=== PATIENT | male | born 1955 | race Caucasian/White ===

== ENCOUNTER 2023-03-15 05:55 | Inpatient (IN) | payer BC, MEDICARE, OTHER ==
[2023-03-15] MEDS ORDERED: fentaNYL 50 mcg/mL 1 mL Vial ONE ×4 (06:17→08:36)
[2023-03-15 06:27] LABS: #Eosinphils 0.3 thou/uL (0.0-0.7); #Monocytes 0.6 thou/uL (0.11-0.59); #Neutrophils 3.9 thou/uL (1.40-6.50); %Basophils 0.4 % (0.0-1.0); %Eosinophils 4.1 % (0.0-10.0); %Lymphocytes 31.7 % (21.0-51.0); %Monocytes 8.7 % (0.0-10.0); %Neutrophils 54.8 % (42.0-75.0); Hematocrit 38.7 % (42.0-52.0); Hemoglobin 13.1 g/dL (14.0-18.0); Mean Corpuscular HGB CONC 33.9 g/dL (32.0-36.0); Mean Corpuscular Hemoglobin 30.8 pg (27.0-31.0); Mean Corpuscular Volume 91.1 fl (78.0-98.0); Mean Platelet Volume 8.9 fL (7.4-10.4); Platelet Count 171 10x3/uL (130-400); RBC Distribution Width 13.5 % (11.5-14.5); Red Blood Cell (RBC) Count 4.25 mill/uL (4.70-6.10); White Blood Cell (WBC) Count 7.1 10x3/uL (4.8-10.8)
[2023-03-15 06:41] LABS: INR-International Normal Ratio 1.1; Prothrombin Time 14.6 sec (12.0-14.7)
[2023-03-15 06:43] LABS: PTT 97.6 sec (22.9-36.1)
[2023-03-15 06:51] LABS: ALT (SGPT) 11 U/L (8-55); AST (SGOT) 9 U/L (5-34); Albumin 3.1 g/dL (3.4-4.8); Alkaline Phosphatase 82 U/L (40-110); Anion Gap 12 mmol/L (10-20); BUN (Urea Nitrogen) 25 mg/dL (8.4-25.7); Bilirubin, Total 0.3 mg/dL (0.2-1.2); Calc. Creatinine Clearance 0 mL/min (70-130); Calcium 8.4 mg/dL (7.8-10.44); Carbon Dioxide 23 mmol/L (23-31); Chloride 105 mmol/L (98-107); Estimated GFR 74; Globulin 2.5 g/dL (2.4-3.5); Glucose 140 mg/dL (80-115); Potassium 3.8 mmol/L (3.5-5.1); Protein, Total 5.6 g/dL (5.8-8.1); Sodium 136 mmol/L (136-145)
[2023-03-15] MEDS ORDERED: Heparin 25,000 units/D5W 500 ML ONE (06:52)
[2023-03-15] MEDS ORDERED: Morphine 2 MG/ML VIAL ONE (06:52)
[2023-03-15] MEDS ORDERED: Nitroglycerin 50 MG/250 ML BOT 0 ML ONE (06:52)
[2023-03-15 06:55] LABS: Troponin I Less than 0.010 ng/mL (< 0.028)
[2023-03-15] MEDS ORDERED: Nitroglycerin 2% Ointment 1 INCH/1 GM Packet ONE (06:59)
[2023-03-15] MEDS ORDERED: Nitroglycerin 0.4 MG TAB (25 Tab Bottle) ONE (07:00)
[2023-03-15] MEDS ORDERED: Midazolam HCl 2 mg/2 ml Vial ONE (07:15)
[2023-03-15] MEDS ORDERED: Heparin 10,000 UNITS/ 10 ML VIAL ONE ×2 (07:16→08:11)
[2023-03-15] MEDS ORDERED: Nitroglycerin 50 MG/250 ML BOT 250 ML ONE (07:16)
[2023-03-15] MEDS ORDERED: Atropine Sulfate 1 mg/10 ml Syringe ONE ×2 (07:32→07:36)
[2023-03-15] MEDS ORDERED: DOBUTamine 250 MG/20 ML VIAL ONE (07:34)
[2023-03-15] MEDS ORDERED: DOPamine 400 MG/D5W 250 ML 250 ML ONE (07:51)
[2023-03-15] MEDS ORDERED: Ondansetron PF 4 MG/2 ML Vial ONE (07:57)
[2023-03-15] MEDS ORDERED: Tirofiban-0.9% Sodium Chloride 250 ML ONE (09:03)
[2023-03-15] MEDS ORDERED: NOREPINEPHRINE 8 MG/250 ML-D5W 250 ML ONE (09:14)
[2023-03-15] MEDS ORDERED: Amiodarone 450 MG in Dextrose 5% in Water 250 ML IVPB SCH (10:15)
[2023-03-15] MEDS ORDERED: Amiodarone 150 MG in Dextrose 5% in Water 100 ML IVPB SCH (10:15)
[2023-03-15] MEDS ORDERED: NOREPINEPHRINE 8 MG/250 ML-D5W 250 ML IVPB SCH (10:15)
[2023-03-15] MEDS ORDERED: TICAGRELOR 90 MG TABLET PO SCH (10:15)
[2023-03-15] MEDS ORDERED: fentaNYL 50 mcg/mL 1 mL Vial SLOW IVP SCH ×2 (10:30→17:15)
[2023-03-15] MEDS ORDERED: Tirofiban-0.9% Sodium Chloride 250 ML IVPB SCH (10:30)
[2023-03-15] MEDS ORDERED: dilTIAZem 25 MG/5 ML VIAL SLOW IVP SCH (10:30)
[2023-03-15] MEDS ORDERED: dilTIAZem 125 MG, Admixture Fee 1 EACH in Sodium Chloride 0.9% 100 ML IVPB SCH (10:30)
[2023-03-15 10:36] LABS: #Eosinphils 0.1 thou/uL (0.0-0.7); #Monocytes 0.7 thou/uL (0.11-0.59); #Neutrophils 10.5 thou/uL (1.40-6.50); %Basophils 0.2 % (0.0-1.0); %Eosinophils 0.7 % (0.0-10.0); %Lymphocytes 6.4 % (21.0-51.0); %Monocytes 5.9 % (0.0-10.0); %Neutrophils 86.5 % (42.0-75.0); Hematocrit 40.5 % (42.0-52.0); Hemoglobin 13.6 g/dL (14.0-18.0); Mean Corpuscular HGB CONC 33.6 g/dL (32.0-36.0); Mean Corpuscular Hemoglobin 30.8 pg (27.0-31.0); Mean Corpuscular Volume 91.8 fl (78.0-98.0); Mean Platelet Volume 8.7 fL (7.4-10.4); Platelet Count 173 10x3/uL (130-400); RBC Distribution Width 13.3 % (11.5-14.5); Red Blood Cell (RBC) Count 4.41 mill/uL (4.70-6.10); White Blood Cell (WBC) Count 12.1 10x3/uL (4.8-10.8)
[2023-03-15] MEDS ORDERED: Iopamidol-370 76% 500 ML MDV (1 ML CHARGE) ONE (10:43)
[2023-03-15 11:06] LABS: Critical Call Chem Troponin I ICU.VW@1106; Troponin I 1.879 ng/mL (< 0.028)
[2023-03-15] MEDS ORDERED: Iopamidol 370 76% 100 ML VIAL ONE (11:12)
[2023-03-15] MEDS: Sodium Chloride 0.9% 1,000 ML IV SCH ×2 (11:41→18:54)
[2023-03-15 15:21] VITALS: BMI 25.6
[2023-03-15 15:47] LABS: #Monocytes 0.7 thou/uL (0.11-0.59); %Basophils 0.1 % (0.0-1.0); %Eosinophils 0.2 % (0.0-10.0); %Lymphocytes 9.5 % (21.0-51.0); %Monocytes 7.1 % (0.0-10.0); %Neutrophils 82.8 % (42.0-75.0); Hematocrit 39.2 % (42.0-52.0); Hemoglobin 13.7 g/dL (14.0-18.0); Mean Corpuscular HGB CONC 34.9 g/dL (32.0-36.0); Mean Corpuscular Hemoglobin 31.4 pg (27.0-31.0); Mean Corpuscular Volume 89.7 fl (78.0-98.0); Mean Platelet Volume 8.7 fL (7.4-10.4); Platelet Count 180 10x3/uL (130-400); RBC Distribution Width 13.4 % (11.5-14.5); Red Blood Cell (RBC) Count 4.37 mill/uL (4.70-6.10); White Blood Cell (WBC) Count 9.7 10x3/uL (4.8-10.8)
[2023-03-15 16:27] LABS: Critical Call Chem Troponin I ICU.VW@1627; Troponin I 26.001 ng/mL (< 0.028)
[2023-03-15] MEDS ORDERED: Magnesium Sulfate 3 GM in Sodium Chloride 0.9% 100 ML IVPB SCH ×2 (16:30→17:15)
[2023-03-15] MEDS ORDERED: fentaNYL 50 mcg/mL 1 mL Vial SLOW IVP PRN (16:58)
[2023-03-15] MEDS ORDERED: Electrolyte Replacement Protocol 1 EACH FS SCH (17:00)
[2023-03-15] MEDS ORDERED: Potassium Chloride 20 MEQ in Premix 1 BAG IVPB SCH (17:15)
[2023-03-15] MEDS ORDERED: Morphine 4 MG/ML VIAL ONE (17:21)
[2023-03-15] MEDS ORDERED: Morphine 2 MG/ML VIAL SLOW IVP PRN (17:25)
[2023-03-15] MEDS ORDERED: Amiodarone 150 MG, Admixture Fee 1 EACH in Dextrose 5% in Water 100 ML IVPB SCH (17:30)
[2023-03-15] MEDS: Amiodarone 450 MG, Admixture Fee 1 EACH in Dextrose 5% in Water 250 ML IVPB SCH ×2 (17:45→22:10)
[2023-03-15] MEDS: Ondansetron PF 4 MG/2 ML Vial IVP PRN (19:39)
[2023-03-15] MEDS: Atorvastatin Calcium 40 MG TAB PO SCH (20:23)
[2023-03-15] MEDS: TICAGRELOR 90 MG TABLET PO SCH (20:25)
[2023-03-15 23:11] LABS: #Neutrophils 10.8 thou/uL (1.40-6.50); %Basophils 0.1 % (0.0-1.0); %Eosinophils 0.2 % (0.0-10.0); %Lymphocytes 8.8 % (21.0-51.0); %Monocytes 7.7 % (0.0-10.0); %Neutrophils 82.9 % (42.0-75.0); Hematocrit 39.1 % (42.0-52.0); Hemoglobin 13.2 g/dL (14.0-18.0); Mean Corpuscular HGB CONC 33.8 g/dL (32.0-36.0); Mean Corpuscular Hemoglobin 30.8 pg (27.0-31.0); Mean Corpuscular Volume 91.4 fl (78.0-98.0); Mean Platelet Volume 8.8 fL (7.4-10.4); Platelet Count 171 10x3/uL (130-400); RBC Distribution Width 13.7 % (11.5-14.5); Red Blood Cell (RBC) Count 4.28 mill/uL (4.70-6.10)
[2023-03-15] MEDS ORDERED: diphenhydrAMINE 50 MG/ML VIAL IVP SCH (23:15)
[2023-03-16 04:32] LABS: #Eosinphils 0.1 thou/uL (0.0-0.7); #Monocytes 1.1 thou/uL (0.11-0.59); #Neutrophils 8.9 thou/uL (1.40-6.50); %Basophils 0.2 % (0.0-1.0); %Eosinophils 0.4 % (0.0-10.0); %Lymphocytes 14.2 % (21.0-51.0); %Monocytes 9.5 % (0.0-10.0); %Neutrophils 75.4 % (42.0-75.0); Hematocrit 38.5 % (42.0-52.0); Hemoglobin 12.7 g/dL (14.0-18.0); Mean Corpuscular Hemoglobin 30.7 pg (27.0-31.0); Mean Platelet Volume 8.8 fL (7.4-10.4); Platelet Count 174 10x3/uL (130-400); RBC Distribution Width 13.7 % (11.5-14.5); Red Blood Cell (RBC) Count 4.14 mill/uL (4.70-6.10); White Blood Cell (WBC) Count 11.8 10x3/uL (4.8-10.8)
[2023-03-16 05:00] LABS: ALT (SGPT) 21 U/L (8-55); AST (SGOT) 59 U/L (5-34); Albumin 3.4 g/dL (3.4-4.8); Alkaline Phosphatase 89 U/L (40-110); Anion Gap 9 mmol/L (10-20); BUN (Urea Nitrogen) 20 mg/dL (8.4-25.7); Bilirubin, Total 0.5 mg/dL (0.2-1.2); Calc. Creatinine Clearance 81 mL/min (70-130); Calcium 8.5 mg/dL (7.8-10.44); Carbon Dioxide 23 mmol/L (23-31); Cardiac Risk 4.2 (Less than 4.5); Chloride 108 mmol/L (98-107); Cholesterol 150 mg/dl (< 200 Desired); Estimated GFR 74; Globulin 2.8 g/dL (2.4-3.5); Glucose 116 mg/dL (80-115); HDL Cholesterol 36 mg/dL (>60 Neg Risk); LDL Cholesterol, Calculated 88 mg/dL; Magnesium 2.1 mg/dL (1.6-2.6); Potassium 4.5 mmol/L (3.5-5.1); Protein, Total 6.2 g/dL (5.8-8.1); Sodium 135 mmol/L (136-145); Triglycerides 129 mg/dL (Less than 150)
[2023-03-16] MEDS: Ondansetron PF 4 MG/2 ML Vial IVP PRN (05:40)
[2023-03-16] MEDS: Sodium Chloride 0.9% 1,000 ML IV SCH ×3 (05:54→21:42)
[2023-03-16] MEDS ORDERED: Promethazine HCl 12.5 MG in Sodium Chloride 0.9% 50 ML IVPB PRN (07:03)
[2023-03-16] MEDS ORDERED: Prochlorperazine 10 MG/2 ML VIAL IM PRN (07:49)
[2023-03-16] MEDS: TICAGRELOR 90 MG TABLET PO SCH ×2 (08:56→21:28)
[2023-03-16] MEDS: Aspirin Chewable 81 MG TAB PO SCH (08:56)
[2023-03-16] MEDS ORDERED: fentaNYL 50 mcg/mL 1 mL Vial SLOW IVP PRN (09:06)
[2023-03-16] MEDS ORDERED: Magnesium 2 GM/50 ML(in water) 2 GM in Premix 1 BAG IVPB SCH (09:30)
[2023-03-16 10:12] LABS: #Neutrophils 8.7 thou/uL (1.40-6.50); %Basophils 0.2 % (0.0-1.0); %Eosinophils 0.4 % (0.0-10.0); %Lymphocytes 9.4 % (21.0-51.0); %Monocytes 9.3 % (0.0-10.0); %Neutrophils 80.4 % (42.0-75.0); Hematocrit 37.5 % (42.0-52.0); Hemoglobin 12.5 g/dL (14.0-18.0); Mean Corpuscular HGB CONC 33.3 g/dL (32.0-36.0); Mean Corpuscular Hemoglobin 30.6 pg (27.0-31.0); Mean Corpuscular Volume 91.7 fl (78.0-98.0); Platelet Count 152 10x3/uL (130-400); RBC Distribution Width 13.6 % (11.5-14.5); Red Blood Cell (RBC) Count 4.09 mill/uL (4.70-6.10); White Blood Cell (WBC) Count 10.9 10x3/uL (4.8-10.8)
[2023-03-16] MEDS: Atorvastatin Calcium 40 MG TAB PO SCH (21:28)
[2023-03-17 05:28] LABS: Critical Call Chem Troponin I NUR.MH16@0527; Troponin I 10.847 ng/mL (< 0.028)
[2023-03-17] MEDS: Sodium Chloride 0.9% 1,000 ML IV SCH ×2 (09:10→20:50)
[2023-03-17] MEDS: Aspirin Chewable 81 MG TAB PO SCH (09:13)
[2023-03-17] MEDS: TICAGRELOR 90 MG TABLET PO SCH ×2 (09:14→20:46)
[2023-03-17] MEDS: Metoprolol Tartrate 25 MG TAB PO SCH ×2 (09:14→20:46)
[2023-03-17] MEDS: Acetaminophen 325 MG TAB PO PRN (16:49)
[2023-03-17] MEDS: Atorvastatin Calcium 40 MG TAB PO SCH (20:46)
[2023-03-18] MEDS: Metoprolol Tartrate 25 MG TAB PO SCH ×2 (09:29→20:37)
[2023-03-18] MEDS: TICAGRELOR 90 MG TABLET PO SCH ×2 (09:29→20:36)
[2023-03-18] MEDS: Aspirin Chewable 81 MG TAB PO SCH (09:29)
[2023-03-18] MEDS: Sodium Chloride 0.9% 1,000 ML IV SCH ×2 (09:32→21:58)
[2023-03-18] MEDS: Acetaminophen 325 MG TAB PO PRN (10:53)
[2023-03-18] MEDS: Gabapentin 300 MG CAP PO SCH (20:37)
[2023-03-18] MEDS: Atorvastatin Calcium 40 MG TAB PO SCH (20:37)
[2023-03-19] MEDS: Acetaminophen 325 MG TAB PO PRN ×3 (01:39→20:12)
[2023-03-19] MEDS: Aspirin Chewable 81 MG TAB PO SCH (10:11)
[2023-03-19] MEDS: Gabapentin 300 MG CAP PO SCH ×3 (10:11→20:11)
[2023-03-19] MEDS: TICAGRELOR 90 MG TABLET PO SCH ×2 (10:12→20:08)
[2023-03-19] MEDS: Metoprolol Tartrate 25 MG TAB PO SCH ×2 (10:12→20:08)
[2023-03-19] MEDS: Atorvastatin Calcium 40 MG TAB PO SCH (20:09)
[2023-03-20] MEDS: Gabapentin 300 MG CAP PO SCH ×2 (08:16→20:44)
[2023-03-20] MEDS: TICAGRELOR 90 MG TABLET PO SCH ×3 (08:17→20:44)
[2023-03-20] MEDS: Aspirin Chewable 81 MG TAB PO SCH (08:17)
[2023-03-20] MEDS: Metoprolol Tartrate 25 MG TAB PO SCH ×2 (08:17→20:44)
[2023-03-20] MEDS ORDERED: Losartan 25 MG TAB PO SCH (11:00)
[2023-03-20] MEDS ORDERED: Gentamicin 80 MG/2 ML VIAL ONE (13:13)
[2023-03-20] MEDS ORDERED: Heparin 10,000 UNITS/ 10 ML VIAL ONE (13:14)
[2023-03-20] MEDS ORDERED: CEFAZOLIN 2 GM VIAL ONE (13:14)
[2023-03-20] MEDS ORDERED: Isoproterenol 0.2 MG/1 ML AMP ONE (13:14)
[2023-03-20] MEDS ORDERED: Ondansetron PF 4 MG/2 ML Vial ONE (14:35)
[2023-03-20] MEDS ORDERED: Midazolam HCl 2 mg/2 ml Vial ONE ×3 (14:35→15:47)
[2023-03-20] MEDS ORDERED: fentaNYL 50 mcg/mL 1 mL Vial ONE (14:35)
[2023-03-20] MEDS: Atorvastatin Calcium 40 MG TAB PO SCH (20:44)
[2023-03-20] MEDS: Acetaminophen 325 MG TAB PO PRN (20:44)
[2023-03-21 05:51] LABS: Anion Gap 12 mmol/L (10-20); BUN (Urea Nitrogen) 13 mg/dL (8.4-25.7); Calc. Creatinine Clearance 91 mL/min (70-130); Calcium 8.4 mg/dL (7.8-10.44); Carbon Dioxide 20 mmol/L (23-31); Chloride 109 mmol/L (98-107); Estimated GFR 89; Glucose 84 mg/dL (80-115); Potassium 3.1 mmol/L (3.5-5.1); Sodium 138 mmol/L (136-145)
[2023-03-21] MEDS ORDERED: Potassium Chloride 20 MEQ TAB PO SCH (08:00)
[2023-03-21 08:59] VITALS: BP 135/70; TEMP 97.8
[2023-03-21] MEDS ORDERED: Losartan 25 MG TAB PO SCH (09:00)
[2023-03-21] MEDS: Gabapentin 300 MG CAP PO SCH (09:43)
[2023-03-21] MEDS: Aspirin Chewable 81 MG TAB PO SCH (09:43)
[2023-03-21] MEDS: Metoprolol Tartrate 25 MG TAB PO SCH (09:43)
[2023-03-21] MEDS: TICAGRELOR 90 MG TABLET PO SCH (09:44)
[2023-03-21] MEDS: Acetaminophen 325 MG TAB PO PRN (11:09)
[2023-03-21 11:20] LABS: Potassium 3.3 mmol/L (3.5-5.1)
== END 2023-03-21 13:02 | disposition home or self-care (01) | DRG 274 ==
LOC: ERS 05:55 → CCL 07:25 → CCU 07:26 → 2SW 03-16 17:46
PROVIDERS: ADMIT Internal Medicine Cardiovascular Disease; ATTEND Internal Medicine Cardiovascular Disease
PROC: 027035Z Dilation of Coronary Artery, One Artery with Two Drug-eluting Intraluminal Devices, Percutaneous Approach (ICD-10-PCS; principal; 2023-03-15)
PROC: 4A023N7 Measurement of Cardiac Sampling and Pressure, Left Heart, Percutaneous Approach (ICD-10-PCS; 2023-03-15)
PROC: B2151ZZ Fluoroscopy of Left Heart using Low Osmolar Contrast (ICD-10-PCS; 2023-03-15)
PROC: B2111ZZ Fluoroscopy of Multiple Coronary Arteries using Low Osmolar Contrast (ICD-10-PCS; 2023-03-15)
PROC: 06HY33Z Insertion of Infusion Device into Lower Vein, Percutaneous Approach (ICD-10-PCS; 2023-03-15)
PROC: 3E03329 Introduction of Other Anti-infective into Peripheral Vein, Percutaneous Approach (ICD-10-PCS; 2023-03-15)
PROC: 3E033XZ Introduction of Vasopressor into Peripheral Vein, Percutaneous Approach (ICD-10-PCS; 2023-03-15)
PROC: 02K83ZZ Map Conduction Mechanism, Percutaneous Approach (ICD-10-PCS; 2023-03-20)
PROC: B21F1ZZ Fluoroscopy of Other Bypass Graft using Low Osmolar Contrast (ICD-10-PCS; 2023-03-20)
PROC: 4A023FZ Measurement of Cardiac Rhythm, Percutaneous Approach (ICD-10-PCS; 2023-03-20)
PROC: 4A0234Z Measurement of Cardiac Electrical Activity, Percutaneous Approach (ICD-10-PCS; 2023-03-20)
DX: I21.19 ST elevation (STEMI) myocardial infarction involving other coronary artery of inferior wall (principal); I48.92 Unspecified atrial flutter; I47.29 Other ventricular tachycardia; E78.5 Hyperlipidemia, unspecified; I25.10 Atherosclerotic heart disease of native coronary artery without angina pectoris; F17.210 Nicotine dependence, cigarettes, uncomplicated; I70.201 Unspecified atherosclerosis of native arteries of extremities, right leg; I48.91 Unspecified atrial fibrillation; I25.5 Ischemic cardiomyopathy; Z95.1 Presence of aortocoronary bypass graft
CPT/HCPCS: 36415; 36556; 71045; 71275; 74174; 75630; 80048; 80053; 80061; 83735; 83880; 84484; 85025; 85347; 85610; 85730; 92941; 92973; 93005; 93010; 93306; 93455; 93620; 93623; 93798; 96365; 96374; 96375; 99152; 99153; C1730; C1751; C1760; C1769; C1874; C1887; C1894; C9606; J0282; J0461; J0780; J1200; J1250; J1265; J1580; J1644; J2250; J2270; J2272; J2405; J3010; J3246; J3475; J3480; J3490; J7050; J7070; Q9967